=== PATIENT | female | born 1975 | race African-American/Black ===

== ENCOUNTER 2017-07-08 11:24 | Emergency (ER) | payer BC, OTHER ==
[~2017-07-08] VITALS: Ht 154.9 cm; Wt 77.1 kg
--- NOTE | ~2017-07-08 | EKG ---
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
[~2017-07-08 11:24] MED LIST: AMITRIPTYLINE H25 M3 PO; ATARAX; LISINOPRIL10 MG PO; PREDNISONE 20 M20 MG PO; PROAIR HFA8.5 GM INH; VENLAFAXINE HC150 M1 PO
[2017-07-08 11:59] LABS: ABSOLUTE NEUTROPHILS 5.4 thou/uL (1.4-8.2); BASOPHILS 0.7 % (0.0-2.0); EOSINOPHILS 5.3 % (0.0-3.0); HEMATOCRIT 40.6 % (37.0-47.0); HEMOGLOBIN 13.9 gm/dL (12.0-15.0); LYMPHOCYTES 25.8 % (24.0-44.0); MCHC 34.4 g/dL (28.0-37.0); MCV 87.2 fL (80.0-100.0); MONOCYTES 8.2 % (1.0-8.0); PLATELET COUNT 258 thou/uL (150-400); RBC 4.65 mil/uL (4.20-5.00)
[2017-07-08 12:00] LABS: MANUAL DIFF NO
[2017-07-08 12:05] LABS: ANION GAP 12 mmol/L (7-16); BUN 7 mg/dL (7-18); CALCIUM 8.7 mg/dL (8.5-10.1); CHLORIDE 104 mmol/L (98-107); CO2 23 mmol/L (21-32); CREATININE 0.8 mg/dL (0.6-1.0); GLUCOSE 88 mg/dL (74-106); POTASSIUM 3.9 mmol/L (3.5-5.1); SODIUM 139 mmol/L (136-145)
[2017-07-08 12:14] LABS: ALBUMIN 3.7 g/dL (3.4-5.0); ALKALINE PHOSPHATASE 67 U/L (46-116); SGOT 20 U/L (15-37); SGPT 20 U/L (30-65); TOTAL BILIRUBIN 0.8 mg/dL (<0.1-1.0); TOTAL PROTEIN 6.7 g/dL (6.4-8.2); TROPONIN-I < 0.04 ng/mL (<0.04-0.07)
[2017-07-08] MEDS ORDERED: LISINOPRIL10 MG PO (13:23)
[2017-07-08 13:42] VITALS: BP 167/92
== END 2017-07-08 13:42 | disposition home or self-care (01) ==
LOC: ER 11:24
PROVIDERS: Physician Assistant
DX: I10 Essential (primary) hypertension (principal); R51 Headache; J45.909 Unspecified asthma, uncomplicated; F10.99 Alcohol use, unspecified with unspecified alcohol-induced disorder; F12.10 Cannabis abuse, uncomplicated; Z90.711 Acquired absence of uterus with remaining cervical stump

== ENCOUNTER 2021-05-28 11:45 | Emergency (ER) | payer OTHER ==
[~2021-05-28] VITALS: Ht 154.9 cm; Wt 72.6 kg
[2021-05-28 11:49] VITALS: BP 150/90
--- NOTE | 2021-05-29 07:18 | EKG ---
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 : 1975 Requested By: Luis Enrique Nair Order Number: [id number] MD: Robby Orta Measurements Intervals [place] Rate: 99 P: 47 [place]: 145 QRS: -6 QRSD: 82 T: 27 QT: 340 QTc: 437 Interpretive Statements Sinus rhythm Probable left atrial enlargement Compared to ECG 07/08/2017 12:18:22 Sinus arrhythmia no longer present Left ventricular hypertrophy no longer present Electronically Signed On 05-29-2021 7:17:54 CDT by Robby Orta [email or web address] <ELECTRONICALLY SIGNED> By: Robby Orta MD, [facility] 05/29/21 0717 1154 1154 Robby Orta MD, FACC /EPI
== END 2021-05-28 13:05 | disposition home or self-care (01) ==
LOC: ER 11:45
PROVIDERS: Student in an Organized Health Care Education/Training Program
DX: R07.89 Other chest pain (principal); Z20.822 Contact with and (suspected) exposure to COVID-19; R05 Cough; J45.909 Unspecified asthma, uncomplicated; F12.90 Cannabis use, unspecified, uncomplicated; Z90.711 Acquired absence of uterus with remaining cervical stump; Z79.51 Long term (current) use of inhaled steroids; Z79.899 Other long term (current) drug therapy